=== PATIENT | male | born 1975 | race Caucasian/White ===

== ENCOUNTER 2020-03-15 22:33 | Emergency (ER) | payer BC ==
[~2020-03-15] VITALS: Ht 175.3 cm; Wt 74.8 kg
[2020-03-15 22:36] VITALS: BP 138/85
--- NOTE | 2020-03-15 23:03 | NUR ---
COVID SWAB COLLECTED AND SENT TO THE LAB.
== END 2020-03-15 23:24 | disposition home or self-care (01) ==
LOC: ER 22:41
DX: Z20.828 Contact with and (suspected) exposure to other viral communicable diseases (principal); Z88.0 Allergy status to penicillin
CPT/HCPCS: 87426; 99283; C9803; U0003